=== PATIENT | male | born 1980 | race Caucasian/White ===

== ENCOUNTER 2021-09-25 10:54 | Emergency (ER) | payer BC ==
[~2021-09-25] VITALS: Ht 175.3 cm; Wt 70.3 kg
[2021-09-25 11:00] VITALS: BP_SYST 136
--- NOTE | 2021-09-25 11:00 | NUR ---
Patient to ER bed 1 to gown for evaluation. Side rails up. Report given to Cathie. Triage done at bedside.
--- NOTE | 2021-09-25 11:01 | NUR ---
Patient YAN from [facility] where his witnessed a seizure lasting approximately one minute. Patient has no history of seizures. Patient states he has a hx of anxiety but is otherwise healthy.
--- NOTE | 2021-09-25 11:02 | NUR ---
ER at bedside examining patient.
--- NOTE | 2021-09-25 11:05 | NUR ---
ECG completed. Results give to doctor. Patient is resting on gurney. Appropriate side rails up.
--- NOTE | 2021-09-25 11:10 | NUR ---
Lab is at the bedside completing blood draw.
[2021-09-25 11:32] LABS: BASOPHILS # (AUTO) 0.1 K/uL (0.0-0.2); BASOPHILS % (AUTO) 1.2 % (0.0-2.0); CALCIUM 8.7 mg/dL (8.4-11.0); CREATININE 0.97 mg/dL (0.55-1.30); EOSINOPHILS # (AUTO) 0.2 K/uL (0.0-0.4); EOSINOPHILS % (AUTO) 3.3 % (0.0-4.0); HEMATOCRIT 42.8 % (36-54); HEMOGLOBIN 14.9 g/dL (14.0-18.0); LYMPHOCYTES # (AUTO) 3.5 K/uL (1.0-5.5); LYMPHOCYTES % (AUTO) 50.2 % (20.5-51.5); MEAN CORPUSCULAR HEMOGLOBIN 37 pg (27-31); MEAN CORPUSCULAR HGB CONC 35 % (32-36); MEAN CORPUSCULAR VOLUME 106 fL (79.0-98.0); MONOCYTES # (AUTO) 0.4 K/uL (0.0-1.0); MONOCYTES % (AUTO) 5.4 % (1.7-9.3); NEUTROPHILS # (AUTO) 2.8 K/uL (1.8-7.7); NEUTROPHILS % (AUTO) 39.9 % (40.0-70.0); PLATELET COUNT (AUTO) 183 K/uL (130-430); POTASSIUM 3.6 mmol/L (3.5-5.1); RED BLOOD CELL COUNT(AUTO) 4.03 MIL/uL (4.2-6.2); RED CELL DISTRIBUTION WIDTH 13.9 % (9.0-15.0)
[2021-09-25 11:37] LABS: ALBUMIN 3.9 g/dL (3.4-4.8)
[2021-09-25] MEDS ORDERED: LORA-259 PO (12:15)
[2021-09-25] MEDS ORDERED: ALPRAZolam 0.25 MG TABLET PO ONE (12:30)
--- NOTE | 2021-09-25 12:56 | NUR ---
Patient given written and verbal discharge instructions and verbalizes understanding. ER Dr. Sang SMALL discussed with patient the results and treatment provided. Patient in stable condition. ID arm band removed. IV catheter removed intact and dressing applied, no active bleeding. Rx of Lorazepam given. Patient educated on pain management and to follow up with PMD. Pain Scale 0/10. Opportunity for questions provided and answered. Medication side effect fact sheet provided.
[2021-09-25 12:59] VITALS: BP_SYST 124
== END 2021-09-25 12:59 | disposition home or self-care (01) ==
LOC: SED 10:54
DX: R56.9 Unspecified convulsions (principal); F10.10 Alcohol abuse, uncomplicated; Z88.0 Allergy status to penicillin
CPT/HCPCS: 36415; 70450; 76376; 80053; 83605; 85025; 99285; G0482; 93005